=== PATIENT | female | born 1960 | race Caucasian/White ===

== ENCOUNTER 2017-02-04 14:44 | Emergency (ER) | payer BC ==
[~2017-02-04] VITALS: Ht 167.6 cm; Wt 81.8 kg
[2017-02-04] MEDS ORDERED: NORCO 325 MG-51 TA1 PO (18:17)
[2017-02-04 18:27] VITALS: BP 162/95
== END 2017-02-04 18:30 | disposition home or self-care (01) ==
LOC: ED 14:44
DX: M66.0 Rupture of popliteal cyst (principal); I10 Essential (primary) hypertension

== ENCOUNTER → 2017-04-08 | Outpatient (CLI) | payer BC ==
[~2017-04-08] MED LIST: NORCO 325 MG-51 TA1 PO
[2017-04-08 15:52] LABS: HEMATOCRIT 42.3 % (37.0-47.0); HEMOGLOBIN 13.7 g/dL (12.5-16.0); RED BLOOD COUNT 4.92 M/mm3 (4.10-5.30); WHITE BLOOD COUNT 7.5 K/mm3 (4.8-10.8)
[2017-04-08 16:40] LABS: ALBUMIN 4.4 g/dL (3.5-5.0); BUN/CREATININE RATIO 18.4 (6.0-26.0); CALCIUM 9.9 mg/dL (8.4-10.2); POTASSIUM 4.4 mmol/L (3.6-5.0); TOTAL BILIRUBIN 0.6 mg/dL (0.2-1.3)
== END ==
LOC: LAB 15:09
PROVIDERS: Family Medicine
DX: E06.3 Autoimmune thyroiditis (principal); I10 Essential (primary) hypertension

== ENCOUNTER → 2017-07-16 | Outpatient (CLI) | payer BC | LOC: RAD 11:20 | DX: Z12.31 Encounter for screening mammogram for malignant neoplasm of breast (principal); Z91.040 Latex allergy status ==